=== PATIENT | female | born 1970 | race Caucasian/White ===

== ENCOUNTER → 2020-08-13 | Day surgery (SDC) | payer OTHER ==
[~2020-08-13] VITALS: Ht 149.9 cm; Wt 88.5 kg
[~2020-08-13] MED LIST: AMLODIPINE-BEN1 EAC1 PO; ATORVASTATIN CA20 MG PO; BACLOFEN20 MG PO; BIOTIN10 MG PO; JANUMET XR 50-1 EACH PO; LEVEMIR FL100 UNIT/1 SC; MENOPAUSE SUPPO20 MG PO; NAPROXEN500 MG PO; NOVOLOG FL100 UNIT/1 SC; PRILOSEC20 MG PO; VENLAFAXINE H37.5 M1 PO; VENLAFAXINE HC150 MG PO
== END | disposition home or self-care (01) ==
LOC: FAS 06:59
DX: D12.5 Benign neoplasm of sigmoid colon (principal); D12.8 Benign neoplasm of rectum; K57.30 Diverticulosis of large intestine without perforation or abscess without bleeding; K64.4 Residual hemorrhoidal skin tags; E11.8 Type 2 diabetes mellitus with unspecified complications; K58.9 Irritable bowel syndrome, unspecified; C95.90 Leukemia, unspecified not having achieved remission; I10 Essential (primary) hypertension; M79.7 Fibromyalgia; G47.30 Sleep apnea, unspecified; Z88.1 Allergy status to other antibiotic agents; Z20.822 Contact with and (suspected) exposure to COVID-19; Z88.5 Allergy status to narcotic agent; Z88.8 Allergy status to other drugs, medicaments and biological substances; Z79.4 Long term (current) use of insulin; Z90.49 Acquired absence of other specified parts of digestive tract; Z87.19 Personal history of other diseases of the digestive system; Z83.71 Family history of colonic polyps; Z99.81 Dependence on supplemental oxygen
CPT/HCPCS: J2704; J7120

== ENCOUNTER → 2020-08-30 | Day surgery (SDC) | payer OTHER ==
[2020-08-30 09:50] LABS: HCT 42.7 % (37.0-47.0); MCH 28.3 pg (25.0-31.0); MCHC 30.4 g/dL (32.0-36.0); MPV 9.5 fL (6.0-9.5); RBC 4.59 M/uL (4.20-5.40); RDW 15.6 % (11.5-14.0)
[2020-08-30 09:59] LABS: BILIRUBIN - TOTAL 0.4 mg/dL (0.2-1.0); BUN/CREAT RATIO (CALC) 32.9 RATIO; CREATININE 0.7 mg/dL (0.51-0.95); GLOBULIN (CALCULATION) 3.9 g/dL; POTASSIUM 3.6 mmol/L (3.5-5.1); TOTAL PROTEIN 7.9 g/dL (6.4-8.2); WBC 86.9 K/uL (4.0-10.5)
== END | disposition home or self-care (01) ==
LOC: FAS 08:25
PROVIDERS: Surgery
DX: C91.10 Chronic lymphocytic leukemia of B-cell type not having achieved remission (principal); K21.9 Gastro-esophageal reflux disease without esophagitis; E11.9 Type 2 diabetes mellitus without complications; I10 Essential (primary) hypertension; E78.00 Pure hypercholesterolemia, unspecified; F41.9 Anxiety disorder, unspecified; K58.9 Irritable bowel syndrome, unspecified; G47.30 Sleep apnea, unspecified; I69.351 Hemiplegia and hemiparesis following cerebral infarction affecting right dominant side; M79.7 Fibromyalgia; Z79.4 Long term (current) use of insulin; Z88.1 Allergy status to other antibiotic agents; Z88.5 Allergy status to narcotic agent
CPT/HCPCS: 36415; 80053; 82962; 93005; J1644; J2250; J2704; J7120